=== PATIENT | female | born 1960 | race Caucasian/White ===

== ENCOUNTER 2018-07-12 15:16 | Outpatient (REF) | payer OTHER, SELFPAY ==
[2018-07-12 22:13] LABS: HGB 12.8 g/dL (12.0-15.5); Mean Corpuscular Hemoglobin 27.8 pg (27.0-33.0); Mean Corpuscular Volume 86.8 fL (80-95); Platelet Count 183 x1000/uL (130-400); RBC 4.61 m/cumm (4.00-5.20); White Blood Cell Count 6.17 k/cumm (4.4-10.8)
[2018-07-12 22:37] LABS: ALT 22 U/L (12-78); AST 21 U/L (15-37); Albumin 3.8 g/dL (3.4-5.0); Alkaline Phosphatase 104 U/L (46-116); Anion Gap 9.3 mmol/L (3-11); BUN 15 mg/dL (7-18); Bilirubin, Total 0.2 mg/dL (0.2-1.0); CO2 26.7 mmol/L (21.0-32.0); CREATININE 0.82 mg/dL (0.55-1.02); Calcium 8.9 mg/dL (8.5-10.1); Chloride 107 mmol/L (98-107); Glucose 97 mg/dL (70-100); Potassium 4.4 mmol/L (3.5-5.1); Sodium 143 mmol/L (136-145); TSH 2.44 uIU/mL (0.358-3.74); Total Protein 7.1 g/dL (6.4-8.2)
== END 2018-07-12 15:36 ==
LOC: NCHCN 15:16
PROVIDERS: Visit Provider Nurse Practitioner Family
DX: R53.81 Other malaise (principal); G47.33 Obstructive sleep apnea (adult) (pediatric); F51.04 Psychophysiologic insomnia; E03.9 Hypothyroidism, unspecified; F32.9 Major depressive disorder, single episode, unspecified
CPT/HCPCS: 80053; 85027; 84443

== ENCOUNTER 2019-07-06 18:19 | Outpatient (REF) | payer OTHER, SELFPAY ==
[2019-07-06 22:24] LABS: TSH 5.43 uIU/mL (0.36-3.74)
== END 2019-07-06 18:39 ==
LOC: NCHCN 18:19
PROVIDERS: Visit Provider Nurse Practitioner Family
DX: E03.9 Hypothyroidism, unspecified (principal)
CPT/HCPCS: 84443

== ENCOUNTER 2019-09-09 09:10 | Outpatient (REF) | payer OTHER, SELFPAY ==
[2019-09-09 21:20] LABS: TSH 0.58 uIU/mL (0.36-3.74)
== END 2019-09-09 09:30 ==
LOC: NCHCN 09:10
PROVIDERS: PCP Nurse Practitioner Family; Visit Provider Nurse Practitioner Family
DX: E03.9 Hypothyroidism, unspecified (principal)
CPT/HCPCS: 84443

== ENCOUNTER 2020-03-26 14:24 | Outpatient (REF) | payer OTHER, SELFPAY ==
[2020-03-26 20:58] LABS: Abs Immature Grans 0.02 k/cumm (0.0-0.09); Absolute Basophil Count 0.01 k/cumm (0.0-0.2); Absolute Lymphocyte Count 1.37 k/cumm (1.2-3.4); Absolute Monocyte Count 0.53 k/cumm (0.11-0.7); Absolute Neutrophil Count 3.06 k/cumm (1.2-6.7); Basophils % 0.2; Eosinophils % 3.9; HCT 40.4 % (36.0-46.0); HGB 12.8 g/dL (12.0-15.5); Immature Grans % 0.4 %; Lymphocytes % 26.4; Mean Corp. HGB Concentration 31.7 g/dL (32.0-36.0); Mean Corpuscular Hemoglobin 26.8 pg (27.0-33.0); Mean Corpuscular Volume 84.7 fL (80-95); Monocytes % 10.2; Neutrophils % 58.9; Platelet Count 228 x1000/uL (130-400); RBC 4.77 m/cumm (4.00-5.20); RBC Distribution Width 14.4 % (11.7-14.6); White Blood Cell Count 5.19 k/cumm (4.4-10.8)
[2020-03-26 21:19] LABS: ALT 30 U/L (14-59); AST 24 U/L (15-37); Alkaline Phosphatase 82 U/L (46-116); Anion Gap 10.3 mmol/L (3-11); BUN 20 mg/dL (7-18); Bilirubin, Total 0.3 mg/dL (0.2-1.0); CO2 27.7 mmol/L (21.0-32.0); CREATININE 0.88 mg/dL (0.55-1.02); Calcium 9.4 mg/dL (8.5-10.1); Chloride 107 mmol/L (98-107); Glucose 100 mg/dL (74-106); Potassium 4.5 mmol/L (3.5-5.1); Sodium 145 mmol/L (136-145); TSH 0.08 uIU/mL (0.36-3.74); Total Protein 7.3 g/dL (6.4-8.2)
== END 2020-03-26 14:44 ==
LOC: NCHCN 14:24
PROVIDERS: PCP Nurse Practitioner Family; Visit Provider Nurse Practitioner Family
DX: E03.9 Hypothyroidism, unspecified (principal); R51 Headache; R25.1 Tremor, unspecified
CPT/HCPCS: 80053; 84443; 85025

== ENCOUNTER 2020-06-26 08:56 | Outpatient (REF) | payer OTHER, SELFPAY ==
[2020-06-26 21:22] LABS: TSH 0.46 uIU/mL (0.36-3.74)
== END 2020-06-26 09:16 ==
LOC: NCHCN 08:56
PROVIDERS: PCP Nurse Practitioner Family; Visit Provider Nurse Practitioner Family
DX: E03.9 Hypothyroidism, unspecified (principal)
CPT/HCPCS: 84443

== ENCOUNTER 2020-07-19 18:08 | Outpatient (REF) | payer OTHER, SELFPAY ==
[2020-07-23 15:31] LABS: Patient Race White; SARS-CoV-2 RNA Undetected (Undetected); SARS-CoV-2 Specimen Source Nasal
== END 2020-07-19 18:28 ==
LOC: NCHCN 18:08
PROVIDERS: PCP Nurse Practitioner Family; Visit Provider Registered Nurse
DX: R51.9 Headache, unspecified (principal)
CPT/HCPCS: U0003

== ENCOUNTER 2020-11-02 21:26 | Outpatient (REF) | payer OTHER, SELFPAY ==
[2020-11-05 12:48] LABS: COVID-19 RT-PCR UVMMC Result Negative (Negative)
== END 2020-11-02 21:46 ==
LOC: NCHCN 21:26
PROVIDERS: PCP Nurse Practitioner Family; Visit Provider Nurse Practitioner Family
DX: R05 Cough (principal)
CPT/HCPCS: U0003

== ENCOUNTER 2021-07-15 15:35 | Outpatient (REF) | payer OTHER, SELFPAY ==
[2021-07-15 22:11] LABS: ALT 27 U/L (14-59); AST 17 U/L (15-37); Albumin 4.2 g/dL (3.4-5.0); Alkaline Phosphatase 76 U/L (46-116); Anion Gap 9.5 mmol/L (3-11); BUN 16 mg/dL (7-18); Bilirubin, Total 0.3 mg/dL (0.2-1.0); CO2 27.5 mmol/L (21.0-32.0); CREATININE 0.9 mg/dL (0.55-1.02); Calcium 8.9 mg/dL (8.5-10.1); Calculated LDL 179 mg/dL (<100); Chloride 105 mmol/L (98-107); Cholesterol 261 mg/dL (<200); Glucose 94 mg/dL (74-106); HDL Cholesterol 57 mg/dL (40-60); Sodium 142 mmol/L (136-145); TSH 2.27 uIU/mL (0.36-3.74); Total Protein 7.4 g/dL (6.4-8.2); Triglyceride 128 mg/dL (<150)
== END 2021-07-15 15:36 | disposition home or self-care (01) ==
LOC: NCHCN 15:35
PROVIDERS: PCP Nurse Practitioner Family; Visit Provider Nurse Practitioner Family
DX: E03.9 Hypothyroidism, unspecified (principal); E78.5 Hyperlipidemia, unspecified; E66.9 Obesity, unspecified; F32.9 Major depressive disorder, single episode, unspecified; Z51.81 Encounter for therapeutic drug level monitoring
CPT/HCPCS: 80053; 80061; 84443

== ENCOUNTER 2021-08-15 08:35 | Outpatient (REF) | payer OTHER, SELFPAY ==
[2021-08-17 14:16] LABS: COVID-19 RT-PCR UVMMC Result Positive (Negative)
== END 2021-08-15 08:36 | disposition home or self-care (01) ==
LOC: NCHCN 08:35
PROVIDERS: PCP Nurse Practitioner Family; Visit Provider Nurse Practitioner Family
DX: Z20.822 Contact with and (suspected) exposure to COVID-19 (principal); J06.9 Acute upper respiratory infection, unspecified
CPT/HCPCS: U0003

== ENCOUNTER 2021-09-16 08:36 | Outpatient (REF) | payer OTHER, SELFPAY ==
[2021-09-16 14:55] LABS: Calculated LDL 89 mg/dL (<100); Cholesterol 167 mg/dL (<200); HDL Cholesterol 63 mg/dL (40-60); Triglyceride 76 mg/dL (<150)
== END 2021-09-16 08:37 | disposition home or self-care (01) ==
LOC: NCHCN 08:36
PROVIDERS: PCP Nurse Practitioner Family; Visit Provider Nurse Practitioner Family
DX: E78.5 Hyperlipidemia, unspecified (principal)
CPT/HCPCS: 80061

== ENCOUNTER 2022-11-17 10:31 | Outpatient (REF) | payer SELFPAY ==
--- NOTE | 2022-11-17 09:15 | PAPFT_PTH ---
PATIENT: July Parra LOC: [facility] U#:[id number] AGE/SX: 62/F ROOM: RE11/17/[address]: Rachel Rhoades : 1960 BED: DIS: 11/17/2022 SPEC #: [id number] RECD: 11/17/22 17:40 STATUS: JES KEATING #: [id number] BRITANY: 11/17/22 09:[address]: Rachel Marion [facility]PT[facility] Cytology RECD BY: Alejandra Blackburn ENTERED: 11/17/22 17:40 SP TYPE: PAPFT YARELIS DR: Heaven Castillo Tissues: 1 - CX/ENDOCX FOR PAP SMEARS Procedures: PAP THIN PREP/[facility] Screening HPV DNA PROBE Comments: [id number]
[2022-11-17 15:09] LABS: Hemoglobin A1C 5.6 % (<5.7)
[2022-11-17 15:18] LABS: Anion Gap 9.4 mmol/L (3-11); BUN 16 mg/dL (7-18); CO2 26.6 mmol/L (21.0-32.0); CREATININE 0.9 mg/dL (0.55-1.02); Calcium 9.4 mg/dL (8.5-10.1); Chloride 107 mmol/L (98-107); Estimated GFR 73.19 (mL/min/1.73m2); Glucose 102 mg/dL (74-106); Sodium 143 mmol/L (136-145); TSH 0.65 uIU/mL (0.36-3.74)
== END 2022-11-17 10:32 | disposition home or self-care (01) ==
LOC: NCHCN 10:31
PROVIDERS: PCP Nurse Practitioner Family; Visit Provider Nurse Practitioner Family
DX: Z00.00 Encounter for general adult medical examination without abnormal findings (principal); E03.9 Hypothyroidism, unspecified; E66.8 Other obesity; Z13.1 Encounter for screening for diabetes mellitus; Z12.4 Encounter for screening for malignant neoplasm of cervix; Z11.51 Encounter for screening for human papillomavirus (HPV)
CPT/HCPCS: 80048; 88142; 83036; 84443; 87624

== ENCOUNTER 2023-11-19 10:48 | Outpatient (REF) | payer MEDICAID, SELFPAY ==
[2023-11-19 15:06] LABS: HCT 43.7 % (36.0-46.0); HGB 14.1 g/dL (11.2-15.7); MCH 26.6 pg (27.0-33.0); MCHC 32.3 % (32.0-36.0); MCV 82 fL (80-95); MPV 10.6 fL (8.0-11.0); Platelet Count 201 10^3/uL (130-400); RBC 5.31 10^6/uL (3.93-5.22); RDW 13.3 % (11.7-14.6); RDW-SD 39.8 fL; WBC 6.72 10^3/uL (4.4-10.8)
[2023-11-19 15:24] LABS: Hemoglobin A1C 5.9 % (<5.7)
[2023-11-19 15:43] LABS: ALT 28 U/L (14-59); AST 23 U/L (15-37); Albumin 4.3 g/dL (3.4-5.0); Alkaline Phosphatase 84 U/L (46-116); Anion Gap 12.2 mmol/L (3-11); BUN 18 mg/dL (7-18); Bilirubin, Total 0.5 mg/dL (0.2-1.0); CO2 25.8 mmol/L (21.0-32.0); CREATININE 0.8 mg/dL (0.55-1.02); Calcium 9.4 mg/dL (8.5-10.1); Calculated LDL 98 mg/dL (<100); Chloride 104 mmol/L (98-107); Cholesterol 185 mg/dL (<200); Estimated GFR 83.78 (mL/min/1.73m2); Glucose 128 mg/dL (74-106); HDL Cholesterol 72 mg/dL (40-60); Sodium 142 mmol/L (136-145); TSH 0.31 uIU/mL (0.36-3.74); Total Protein 8.2 g/dL (6.4-8.2); Triglyceride 75 mg/dL (<150)
== END 2023-11-19 10:49 | disposition home or self-care (01) ==
LOC: NCHCN 10:48
PROVIDERS: PCP Nurse Practitioner Family; Visit Provider Nurse Practitioner Family
DX: E03.9 Hypothyroidism, unspecified (principal); E78.5 Hyperlipidemia, unspecified; R73.09 Other abnormal glucose
CPT/HCPCS: 80053; 80061; 85027; 83036; 84443

== ENCOUNTER 2024-02-19 15:03 | Outpatient (REF) | payer MEDICAID, SELFPAY ==
[2024-02-19 14:47] LABS: TSH 2.97 uIU/Ml (0.36-3.74)
== END 2024-02-19 15:04 | disposition home or self-care (01) ==
LOC: NCHCN 15:03
PROVIDERS: PCP Nurse Practitioner Family; Visit Provider Nurse Practitioner Family
DX: E03.9 Hypothyroidism, unspecified (principal)
CPT/HCPCS: 84443

== ENCOUNTER 2024-03-12 15:20 | Outpatient (REF) | payer MEDICAID, SELFPAY | END 2024-03-12 15:21 | disposition home or self-care (01) | LOC: LBN 15:20 | PROVIDERS: PCP Nurse Practitioner Family; Visit Provider Physician Assistant Medical | DX: J02.9 Acute pharyngitis, unspecified (principal) | CPT/HCPCS: 87070 ==

== ENCOUNTER 2024-11-18 19:34 | Outpatient (REF) | payer MEDICAID, SELFPAY ==
[2024-11-18 21:02] LABS: HCT 41.5 % (36.0-46.0); MCH 26.9 pg (27.0-33.0); MCHC 31.3 % (32.0-36.0); MCV 86 fL (80-95); Platelet Count 186 10^3/uL (130-400); RBC 4.84 10^6/uL (3.93-5.22); RDW 13.9 % (11.7-14.6); RDW-SD 42.9 fL; WBC 5.66 10^3/uL (4.4-10.8)
[2024-11-18 21:24] LABS: ALT 22 U/L (14-59); AST 21 U/L (15-37); Alkaline Phosphatase 94 U/L (46-116); Anion Gap 9.3 mmol/L (3-11); BUN 20 mg/dL (7-18); Bilirubin, Total 0.28 mg/dL (0.2-1.0); CO2 26.7 mmol/L (21.0-32.0); Calcium 9.9 mg/dL (8.5-10.1); Calculated LDL 76 mg/dL (<100); Chloride 107 mmol/L (98-107); Cholesterol 176 mg/dL (<200); Glucose 106 mg/dL (74-106); HDL Cholesterol 80 mg/dL (40-60); Potassium 4.2 mmol/L (3.5-5.1); Sodium 143 mmol/L (136-145); TSH 0.97 uIU/mL (0.36-3.74); Total Protein 7.8 g/dL (6.4-8.2); Triglyceride 104 mg/dL (<150)
== END 2024-11-18 19:35 | disposition home or self-care (01) ==
LOC: NCHCN 19:34
PROVIDERS: PCP Nurse Practitioner Family; Visit Provider Nurse Practitioner Family
DX: E66.9 Obesity, unspecified (principal); E78.5 Hyperlipidemia, unspecified; R73.03 Prediabetes; E03.9 Hypothyroidism, unspecified; Z13.0 Encounter for screening for diseases of the blood and blood-forming organs and certain disorders involving the immune mechanism
CPT/HCPCS: 80053; 80061; 85027; 83036; 84443

== ENCOUNTER 2025-08-03 20:25 | Outpatient (REF) | payer MEDICAID, SELFPAY ==
[2025-08-03 20:58] LABS: HCT 42.6 % (36.0-46.0); HGB 13.9 g/dL (11.2-15.7); MCH 27.9 pg (27.0-33.0); MCHC 32.6 % (32.0-36.0); MCV 86 fL (80-95); MPV 10.8 fL (8.0-11.0); Platelet Count 211 10^3/uL (130-400); RBC 4.98 10^6/uL (3.93-5.22); RDW 13.2 % (11.7-14.6); RDW-SD 41.0 fL; WBC 6.51 10^3/uL (4.4-10.8)
[2025-08-03 21:15] LABS: Anion Gap 10.0 mmol/L (3-11); BUN 15 mg/dL (7-18); CO2 26.0 mmol/L (21.0-32.0); Calcium 9.3 mg/dL (8.5-10.1); Calculated LDL 88 mg/dL (<100); Chloride 103 mmol/L (98-107); Cholesterol 178 mg/dL (<200); Estimated GFR 97.12 (mL/min/1.73m2); Glucose 120 mg/dL (74-106); HDL Cholesterol 72 mg/dL (>or=50); Potassium 4.0 mmol/L (3.5-5.1); Sodium 139 mmol/L (136-145); TSH 2.15 uIU/mL (0.36-3.74); Triglyceride 93 mg/dL (<150)
[2025-08-03 21:40] LABS: Hemoglobin A1C 6.2 % (<5.7)
== END 2025-08-03 20:26 | disposition home or self-care (01) ==
LOC: NCHCN 20:25
PROVIDERS: PCP Nurse Practitioner Family; Visit Provider Physician Assistant
DX: R73.03 Prediabetes (principal); E78.5 Hyperlipidemia, unspecified; E03.9 Hypothyroidism, unspecified; Z13.0 Encounter for screening for diseases of the blood and blood-forming organs and certain disorders involving the immune mechanism
CPT/HCPCS: 80048; 80061; 85027; 83036; 84443